=== PATIENT | female | born 1965 | race Hispanic/Latino ===

== ENCOUNTER 2017-08-04 09:00 | Observation (INO) | payer BC ==
[~2017-08-04] VITALS: Ht 154.9 cm; Wt 64.2 kg
[~2017-08-04 09:00] MED LIST: ASPI-1026 PO; LISI10TA7 PO; METF500T6 PO; SIMV20TA6 PO
[2017-08-04] MEDS ORDERED: NITROGLYCERIN 1GM/1 INCH PACKET TD ONE (09:26)
[2017-08-04] MEDS ORDERED: ASPIRIN 81MG TAB.CHEW ONE (09:26)
[2017-08-04 09:30] LABS: BASOPHILS % (AUTO) 0.7 % (0.0-5.0); EOSINOPHILS % (AUTO) 2.3 % (0.0-8.0); HEMATOCRIT 36.1 % (36-48); LYMPHOCYTES % (AUTO) 19.7 % (21.0-51.0); MEAN CORPUSCULAR HEMOGLOBIN 29.8 pg (27.0-33.0); MEAN CORPUSCULAR HGB CONC 34.7 g/dL (32.0-36.0); MEAN CORPUSCULAR VOLUME 85.9 fL (79-99); MONOCYTES % (AUTO) 7.7 % (3.0-13.0); NEUTROPHILS % (AUTO) 69.6 % (40.0-77.0); PLATELET COUNT (AUTO) 235 K/uL (130-400); RED CELL DISTRIBUTION WIDTH 13.6 % (11.0-15.5); WHITE BLOOD COUNT (AUTO) 6.9 K/uL (4.8-10.8)
[2017-08-04 09:39] LABS: CREATININE 0.8 mg/dL (0.5-1.5); POTASSIUM 3.9 mmol/L (3.5-5.1)
[2017-08-04 09:43] LABS: INR 0.92 (0.85-1.15); PARTIAL THROMBOPLASTIN TIME 26.1 SEC (26.3-35.5); PROTHROMBIN TIME 9.7 SEC (9.6-11.6)
[2017-08-04 09:54] LABS: ALBUMIN 4.2 g/dL (3.5-5.0); BILIRUBIN,TOTAL 0.5 mg/dL (0.2-1.0); CREATINE KINASE MB 1.3 ng/mL (0.5-3.6); TOTAL PROTEIN, SERUM 7.9 g/dL (6.0-8.3)
[2017-08-04] MEDS ORDERED: LIDOCAINE HCL 2% VISCOUS 15 ML UDCUP ONE (10:11)
[2017-08-04] MEDS ORDERED: MAG HYDROX/AL HYDROX/SIMETH ES 30 ML SUSP UDCUP ONE (10:11)
[2017-08-04 15:37] VITALS: BP 116/61
[2017-08-04] MEDS ORDERED: NITROGLYCERIN 0.4 MG SL TAB SL PRN (15:45)
[2017-08-04] MEDS ORDERED: ACETAMINOPHEN 325 MG TAB PO PRN (15:45)
[2017-08-04] MEDS ORDERED: CLONIDINE HCL 0.1 MG TABLET PO PRN (15:45)
[2017-08-04] MEDS ORDERED: LACTULOSE 20 GM/30 ML UDCUP PO PRN (15:45)
[2017-08-04] MEDS ORDERED: ONDANSETRON HCL MDV 20ML 2 MG/ML VIAL IVP PRN (15:45)
[2017-08-04] MEDS: ENOXAPARIN SODIUM 40 MG/0.4 ML SYRINGE SQ SCH (15:47)
[2017-08-04] MEDS ORDERED: ASPI-555 PO (16:04)
[2017-08-04] MEDS ORDERED: GLIP5TAB11 PO (16:04)
[2017-08-04] MEDS ORDERED: DEXTROSE 50%-WATER 50 ML DISP.SYRIN IV PRN (16:45)
[2017-08-04] MEDS ORDERED: GLUCAGON 1MG KIT 1 MG ML IM PRN (16:45)
[2017-08-04 16:51] VITALS: BP 129/75
[2017-08-04 17:33] LABS: CREATINE KINASE MB 0.9 ng/mL (0.5-3.6); CREATINE KINASE, TOTAL 106 U/L (21-232); MYOGLOBIN 54 ng/mL (10-92); TROPONIN I < 0.04 ng/mL (0.00-0.06)
[2017-08-04] MEDS: INSULIN HUMULIN R 100 UNIT/ML 3ML SQ SCH (21:00)
[2017-08-04 21:32] VITALS: BP 113/71
[2017-08-05 00:29] VITALS: BP 99/64
[2017-08-05 01:43] LABS: HEMOGLOBIN A1C 8.1 % (4.0-6.0)
[2017-08-05 01:50] LABS: CHOLESTEROL 100 mg/dL (<200); CREATINE KINASE MB 0.8 ng/mL (0.5-3.6); CREATINE KINASE, TOTAL 94 U/L (21-232); HDL CHOLESTEROL 50 mg/dL (35-85); LDL DIRECT 39 mg/dL (0-99); MYOGLOBIN 33 ng/mL (10-92); THYROID STIMULATING HORMONE 1.12 uIU/mL (0.36-3.74); TRIGLYCERIDES 163 mg/dL (30-200); TROPONIN I < 0.04 ng/mL (0.00-0.06)
[2017-08-05 05:00] VITALS: BP 101/63
[2017-08-05] MEDS: INSULIN HUMULIN R 100 UNIT/ML 3ML SQ SCH (06:44)
[2017-08-05 07:35] VITALS: BP 111/74
[2017-08-05] MEDS: ENOXAPARIN SODIUM 40 MG/0.4 ML SYRINGE SQ SCH (08:11)
[2017-08-05] MEDS ORDERED: ASPIRIN 325 MG TABLET PO SCH (09:00)
[2017-08-05] MEDS ORDERED: PANT40TA25 PO (09:13)
== END 2017-08-05 11:15 | disposition home or self-care (01) ==
LOC: EDH 09:00 → EDHIP 13:47 → 2DH 14:55
PROVIDERS: ADMIT Family Medicine; ATTEND Family Medicine
DX: R07.89 Other chest pain (principal); E11.9 Type 2 diabetes mellitus without complications; I10 Essential (primary) hypertension; E78.5 Hyperlipidemia, unspecified; Z82.49 Family history of ischemic heart disease and other diseases of the circulatory system; Z90.49 Acquired absence of other specified parts of digestive tract
CPT/HCPCS: 36415 ×2; 71046; 80053; 80061; 82550 ×3; 82553 ×3; 82948 ×3; 83036; 83874 ×2; 84443; 84484 ×3; 85025; 85378; 85610; 85730; 93005 ×3; 96372 ×2; 99285; G0378 ×21; J1650 ×2

== ENCOUNTER 2021-04-08 14:54 | Emergency (ER) | payer BC, OTHER ==
[~2021-04-08] VITALS: Ht 149.9 cm; Wt 63.5 kg
[~2021-04-08 14:54] MED LIST changes: +ASPI-556 PO; +GLIP5TAB11 PO; +LISI10TA24 PO; -LISI10TA7 PO; +METF-444 PO; -METF500T6 PO; +PANT40TA55 PO; +SIMV-43 PO; -SIMV20TA6 PO
[2021-04-08] MEDS ORDERED: KETOROLAC 30MG VIAL (30MG/ML) IM ONE (15:30)
[2021-04-08 16:10] VITALS: BP 140/76
[2021-04-08] MEDS ORDERED: IBUP-2070 PO (16:21)
[2021-04-08] MEDS ORDERED: CEPH500C2 PO (16:21)
== END 2021-04-08 16:34 | disposition home or self-care (01) ==
LOC: EDH 14:54
DX: S62.633A Displaced fracture of distal phalanx of left middle finger, initial encounter for closed fracture (principal); S67.193A Crushing injury of left middle finger, initial encounter; E11.9 Type 2 diabetes mellitus without complications; E78.00 Pure hypercholesterolemia, unspecified; I10 Essential (primary) hypertension; Z79.1 Long term (current) use of non-steroidal anti-inflammatories (NSAID); Z79.82 Long term (current) use of aspirin; Z79.84 Long term (current) use of oral hypoglycemic drugs; Z79.899 Other long term (current) drug therapy; Z90.49 Acquired absence of other specified parts of digestive tract; W23.0XXA Caught, crushed, jammed, or pinched between moving objects, initial encounter; Y93.89 Activity, other specified; Y92.89 Other specified places as the place of occurrence of the external cause; Y99.8 Other external cause status
CPT/HCPCS: 29130; 73140; 96372; 99283; J1885